=== PATIENT | female | born 1980 | race Caucasian/White ===

== ENCOUNTER 2016-07-03 13:38 | Emergency (ER) | payer OTHER ==
--- NOTE | 2016-07-03 15:14 | Emergency Department Record ---
History of Present Illness - General Chief Complaint: Abdominal Pain Stated Complaint: ABD PAIN Time Seen by Provider: 07/03/16 14:20 Mode of Arrival: Ambulatory - History of Present Illness Initial Comments: 2 days of abdominal pain and history of colitis . using endocort 3 pills per day but getting worse Complaint: Abdominal pain Onset/Timin -: Days(s) Location: LUQ, RUQ, LLQ, RLQ Radiation: None Migration to: No migration Severity: Severe Quality: Cramping Consistency: Constant Improves With: Nothing Worsens With: Nothing Associated Symptoms: Diarrhea - Related Data Patient : No Home Medications Medication Instructions Recorded Confirmed Last Taken Verapamil HCl [Verapamil ER] 180 mg PO DAILY 01/12/16 07/03/16 07/02/16 Budesonide [Entocort EC] 3 mg PO DAILY 07/03/16 07/03/16 07/03/16 Triamterene/Hydrochlorothiazid 1 tab PO DAILY 07/03/16 07/03/16 07/03/16 [Triamterene-Hctz 37.5-25 mg Cp] Previous Rx's Medication Instructions Recorded Hydrocodone/Acetaminophen [[place] 1 tab PO Q6H PRN #7 tab 01/12/16 5mg/325mg] Ondansetron [Zofran Odt] 4 mg PO Q8H #10 tab.rapdis 01/12/16 Prednisone [Prednisone 20Mg] 20 mg PO BIDPC #8 tab 01/12/16 Hydrocodone/Acetaminophen [[place] 1 tab PO Q6H PRN #20 tab 07/03/16 5mg/325mg] Ondansetron HCl [Zofran] 4 mg PO Q6HR #10 ml 07/03/16 Allergies Allergy/AdvReac Type Severity Reaction Status Date / Time No Known Drug Allergies Allergy Verified 07/03/16 14:20 Travel Screening - Travel/Exposure Within Last 30 Days Have you traveled within the last 30 days?: No Review of Systems Reviewed: No additional complaints except as noted below Constitutional: Reports: As per HPI. Denies: Chills, Fever, Malaise, Night sweats, Weakness, Weight change Eyes: Reports: As per HPI. Denies: Eye discharge, Eye pain, Photophobia, Vision change ENT: Reports: As per HPI. Denies: Congestion, Dental pain, Ear pain, Epistaxis , Hearing loss, Throat pain Respiratory: Reports: As per HPI. Denies: Cough, Dyspnea, Hemoptysis, Stridor, Wheezes Cardiovascular: Reports: As per HPI. Denies: Arrhythmia, Chest pain, Dyspnea on exertion, Edema, Murmurs, Orthopnea, Palpitations, Paroxysmal nocturnal dyspnea, Rheumatic Fever, Syncope Endocrine: Reports: As per HPI. Denies: Fatigue, Heat or cold intolerance, Polydipsia, Polyuria Gastrointestinal: Reports: As per HPI, Abdominal pain. Denies: Constipation, Diarrhea, Hematemesis, Hematochezia, Melena, Nausea, Vomiting Genitourinary: Reports: As per HPI. Denies: Abnormal menses, Discharge, Dyspareunia, Dysuria, Frequency, Hematuria, Incontinence, Retention, Urgency Musculoskeletal: Reports: As per HPI. Denies: Arthralgia, Back pain, Gout, Joint swelling, Myalgia, Neck pain Skin: Reports: As per HPI. Denies: Bruising, Change in color, Change in hair/ nails, Lesions, Pruritus, Rash Neurological: Reports: As per HPI. Denies: Abnormal gait, Confusion, Headache, Numbness, Paresthesias, Seizure, Tingling, Tremors, Vertigo, Weakness Psychiatric: Reports: As per HPI. Denies: Anxiety, Auditory hallucinations, Depression, Homicidal thoughts, Suicidal thoughts, Visual hallucinations Hematological/Lymphatic: Reports: As per HPI. Denies: Anemia, Blood Clots, Easy bleeding, Easy bruising, Swollen glands Past Medical History - SOCIAL HISTORY Smoking Status: Current every day smoker Alcohol Use: None Drug Use: None - RESPIRATORY Hx Respiratory Disorders: No - CARDIOVASCULAR Hx Cardio Disorders: Yes Hx Hypertension: Yes - NEURO Hx Neuro Disorders: No - GI Hx GI Disorders: Yes Comment:: colitis/duodinitis - Hx Genitourinary Disorders: No - ENDOCRINE Hx Endocrine Disorders: No - MUSCULOSKELETAL Hx Musculoskeletal Disorders: Yes - PSYCH Hx Psych Problems: No - HEMATOLOGY/ONCOLOGY Hx Hematology/Oncology Disorders: No Family Medical History Any Significant Family History?: No Physical Exam - General General Appearance: Alert, Oriented x3, Cooperative, No acute distress - Head Head exam: Normal inspection - Eye Eye exam: Normal appearance, PERRL Pupils: Normal accommodation - ENT ENT exam: Normal exam, Mucous membranes moist, Normal external ear exam, Normal orophraynx, TM's normal bilaterally Ear exam: Normal external inspection. negative: External canal tenderness Nasal Exam: Normal inspection. negative: Discharge, Sinus tenderness Mouth exam: Normal external inspection, Tongue normal Teeth exam: Normal inspection. negative: Dental caries Throat exam: Normal inspection. negative: Tonsillar erythema, Tonsillar exudate - Neck Neck exam: Normal inspection, Full ROM. negative: Tenderness - Respiratory Respiratory exam: Normal lung sounds bilaterally. negative: Respiratory distress - Cardiovascular Cardiovascular Exam: Regular rate, Normal rhythm, Normal heart sounds - GI/Abdominal GI/Abdominal exam: Soft, Normal bowel sounds, Tenderness (all four quads). negative: Guarding, Rebound, Rigid - Rectal Rectal exam: Deferred - exam: Deferred - Extremities Extremities exam: Normal inspection, Full ROM, Normal capillary refill. negative: Tenderness - Back Back exam: Reports: Normal inspection, Full ROM. Denies: Muscle spasm, Rash noted, Tenderness - Neurological Neurological exam: Alert, Normal gait, Oriented X3, Reflexes normal - Psychiatric Psychiatric exam: Normal affect, Normal mood - Skin Skin exam: Dry, Intact, Normal color, Warm Course Vital Signs 07/03/16 14:14 Temperature 98.4 F Pulse Rate 78 Respiratory 20 Rate Blood Pressure 141/111 Pulse Ox 99 feeling better Medical Decision Making - Data Complexity MDM Data: Labs Ordered and/or Reviewed, X-Ray Ordered and/or Reviewed (mild air fluid levels early illeus) - Lab Data Result diagrams: 07/03/16 14:30 07/03/16 14:30 Disposition Clinical Impression: Colitis Abdominal pain Qualifiers: Abdominal location: generalized Qualified Code(s): R10.84 - Generalized abdominal pain Disposition: Home, Self-Care Condition: (1) Good Instructions: Colitis (ED) Additional Instructions: clear liquids 24 hours follow up with in 2-5 days take entocort 4 pills per day Prescriptions: Ondansetron HCl [Zofran] 4 mg PO Q6HR #10 ml Hydrocodone/Acetaminophen [[place] 5mg/325mg] 1 tab PO Q6H PRN #20 tab PRN Reason: Pain - General Forms: Patient Portal Access Time of Disposition: 16:57
[2016-07-03] MEDS: ONDANSETRON HCL IV 4 MG/2 ML VIAL IV ONE (15:27)
[2016-07-03] MEDS: METHYLPREDNISOLONE PF 125MG/VIAL IVP ONE (15:27)
[2016-07-03] MEDS: HYDROMORPHONE HCL 1 MG/ML CPJ IVP ONE (15:27)
[2016-07-03] MEDS: 0.9 % SODIUM CHLORIDE 1,000 ML BAG IV ONE (15:30)
[2016-07-03 16:04] LABS: BASO % 0.3 % (0-6); EOS % 0.5 % (0-6); GRAN % 64.8 % (47-80); HEMATOCRIT 40.8 % (35.0-47.0); HEMOGLOBIN 14.4 gm/dl (11.6-16.0); LYMPH % 26.9 % (16-45); MEAN CELL VOLUME 90.9 fl (81-97); MEAN CORPUSCULAR HEMOGLOBIN 32.1 pg (27-33); MEAN CORPUSCULAR HGB CONC 35.3 g/dl (32-36); MEAN PLATELET VOLUME 9.8 fl (7.4-10.4); MONO % 7.5 % (0-9); PLATELET COUNT 334 K/uL (130-400); RED BLOOD COUNT 4.49 M/uL (3.80-5.40); RED CELL DISTRIBUTION WIDTH 12.4 % (11.5-14.5); WHITE BLOOD COUNT W/O DIFF 11.3 K/uL (4.2-12.2)
[2016-07-03 16:07] LABS: URINE APPEARANCE SL CLOUDY; URINE BILIRUBIN NEGATIVE (NEGATIVE); URINE BLOOD NEGATIVE (NEGATIVE); URINE COLOR YELLOW; URINE GLUCOSE (UA) NEGATIVE (NEGATIVE); URINE KETONE NEGATIVE (NEGATIVE); URINE LEUKOCYTE ESTERASE SMALL (NEGATIVE); URINE NITRITE NEGATIVE (NEGATIVE); URINE PROTEIN NEGATIVE (NEGATIVE); URINE UROBILINOGEN 0.2 E.U./dL (0.20 - 1.00)
[2016-07-03 16:14] LABS: URINE BACTERIA 3+; URINE EPITHELIAL CELLS 0 - 2 (FEW); URINE RBC NONE SEEN (NONE SEEN); URINE WBC 16 - 20 (0-2/hpf)
[2016-07-03 16:17] LABS: ALBUMIN 4.3 gm/dL (3.5-5.0); ALKALINE PHOSPHATASE 69 U/L (38-126); ALT/SGPT 30 U/L (9-52); ANION GAP 13.3 (7-16); AST/SGOT 19 U/L (14-36); BILIRUBIN,TOTAL 0.29 mg/dL (0.2-1.3); BLOOD UREA NITROGEN 9 mg/dL (7-17); CARBON DIOXIDE 23.7 mmol/L (22-30); CREATININE 0.7 mg/dL (0.52-1.04); EST GLOMERULAR FILTRATION RATE > 60 ml/min; GLUCOSE,RANDOM 72 mg/dL (70-110); LIPASE 168 U/L (23-300); TOTAL PROTEIN 7.2 gm/dL (6.3-8.2)
--- NOTE | 2016-07-03 17:14 | Emergency Department Record ---
History of Present Illness - General Chief Complaint: Abdominal Pain Stated Complaint: ABD PAIN Time Seen by Provider: 07/03/16 14:20 Mode of Arrival: Ambulatory - History of Present Illness MD Complaint: Abdominal pain Onset/Timin -: Days(s) Location: LUQ, RUQ, LLQ, RLQ Radiation: None Migration to: No migration Severity: Severe Quality: Cramping Consistency: Constant Improves With: Nothing Worsens With: Nothing Associated Symptoms: Diarrhea - Related Data Patient : No Home Medications Medication Instructions Recorded Confirmed Last Taken Verapamil HCl [Verapamil ER] 180 mg PO DAILY 01/12/16 07/03/16 07/02/16 Budesonide [Entocort EC] 3 mg PO DAILY 07/03/16 07/03/16 07/03/16 Triamterene/Hydrochlorothiazid 1 tab PO DAILY 07/03/16 07/03/16 07/03/16 [Triamterene-Hctz 37.5-25 mg Cp] Previous Rx's Medication Instructions Recorded Hydrocodone/Acetaminophen [[place] 1 tab PO Q6H PRN #7 tab 01/12/16 5mg/325mg] Ondansetron [Zofran Odt] 4 mg PO Q8H #10 tab.rapdis 01/12/16 Prednisone [Prednisone 20Mg] 20 mg PO BIDPC #8 tab 01/12/16 Ciprofloxacin HCl [Cipro] 500 mg PO Q12HR #14 tablet 07/03/16 Hydrocodone/Acetaminophen [[place] 1 tab PO Q6H PRN #20 tab 07/03/16 5mg/325mg] Ondansetron HCl [Zofran] 4 mg PO Q6HR #10 ml 07/03/16 Allergies Allergy/AdvReac Type Severity Reaction Status Date / Time No Known Drug Allergies Allergy Verified 07/03/16 14:20 Travel Screening - Travel/Exposure Within Last 30 Days Have you traveled within the last 30 days?: No Review of Systems Constitutional: Reports: As per HPI. Denies: Chills, Fever, Malaise, Night sweats, Weakness, Weight change Eyes: Reports: As per HPI. Denies: Eye discharge, Eye pain, Photophobia, Vision change ENT: Reports: As per HPI. Denies: Congestion, Dental pain, Ear pain, Epistaxis , Hearing loss, Throat pain Respiratory: Reports: As per HPI. Denies: Cough, Dyspnea, Hemoptysis, Stridor, Wheezes Cardiovascular: Reports: As per HPI. Denies: Arrhythmia, Chest pain, Dyspnea on exertion, Edema, Murmurs, Orthopnea, Palpitations, Paroxysmal nocturnal dyspnea, Rheumatic Fever, Syncope Endocrine: Reports: As per HPI. Denies: Fatigue, Heat or cold intolerance, Polydipsia, Polyuria Gastrointestinal: Reports: As per HPI, Abdominal pain. Denies: Constipation, Diarrhea, Hematemesis, Hematochezia, Melena, Nausea, Vomiting Genitourinary: Reports: As per HPI. Denies: Abnormal menses, Discharge, Dyspareunia, Dysuria, Frequency, Hematuria, Incontinence, Retention, Urgency Musculoskeletal: Reports: As per HPI. Denies: Arthralgia, Back pain, Gout, Joint swelling, Myalgia, Neck pain Skin: Reports: As per HPI. Denies: Bruising, Change in color, Change in hair/ nails, Lesions, Pruritus, Rash Neurological: Reports: As per HPI. Denies: Abnormal gait, Confusion, Headache, Numbness, Paresthesias, Seizure, Tingling, Tremors, Vertigo, Weakness Psychiatric: Reports: As per HPI. Denies: Anxiety, Auditory hallucinations, Depression, Homicidal thoughts, Suicidal thoughts, Visual hallucinations Hematological/Lymphatic: Reports: As per HPI. Denies: Anemia, Blood Clots, Easy bleeding, Easy bruising, Swollen glands Past Medical History - SOCIAL HISTORY Smoking Status: Current every day smoker Alcohol Use: None Drug Use: None - RESPIRATORY Hx Respiratory Disorders: No - CARDIOVASCULAR Hx Cardio Disorders: Yes Hx Hypertension: Yes - NEURO Hx Neuro Disorders: No - GI Hx GI Disorders: Yes Comment:: colitis/duodinitis - Hx Genitourinary Disorders: No - ENDOCRINE Hx Endocrine Disorders: No - MUSCULOSKELETAL Hx Musculoskeletal Disorders: Yes - PSYCH Hx Psych Problems: No - HEMATOLOGY/ONCOLOGY Hx Hematology/Oncology Disorders: No Family Medical History Any Significant Family History?: No Course Vital Signs 07/03/16 07/03/16 07/03/16 14:14 15:53 17:06 Temperature 98.4 F Pulse Rate 78 75 Pulse Rate [ 71 Pulse Ox Probe] Respiratory 20 16 16 Rate Blood Pressure 141/111 140/105 Blood Pressure 138/94 [Right Arm] Pulse Ox 99 96 97 Medical Decision Making - Lab Data Result diagrams: 07/03/16 14:30 07/03/16 14:30 Lab Results 07/03/16 07/03/16 07/03/16 Range/Units 14:30 14:30 14:30 WBC 11.3 (4.2-12.2) K/uL RBC 4.49 (3.80-5.40) M/uL Hgb 14.4 (11.6-16.0) gm/dl Hct 40.8 (35.0-47.0) % MCV 90.9 (81-97) fl MCH 32.1 (27-33) pg MCHC 35.3 (32-36) g/dl RDW 12.4 (11.5-14.5) % Plt Count 334 (130-400) K/uL MPV 9.8 (7.4-10.4) fl Gran % 64.8 (47-80) % Lymphocytes % 26.9 (16-45) % Monocytes % 7.5 (0-9) % Eosinophils % 0.5 (0-6) % Basophils % 0.3 (0-6) % Sodium 144 (136-145) mmol/L Potassium 3.5 (3.5-5.1) mmol/L Chloride 107 (98-107) mmol/L Carbon Dioxide 23.7 (22-30) mmol/L Anion Gap 13.3 (7-16) BUN 9 (7-17) mg/dL Creatinine 0.7 (0.52-1.04) mg/dL Estimated GFR > 60 ml/min Random Glucose 72 (70-110) mg/dL Calcium 9.2 (8.5-10.1) mg/dL Total Bilirubin 0.29 (0.2-1.3) mg/dL Direct Bilirubin 0.0 (0-0.3) mg/dL AST 19 (14-36) U/L ALT 30 (9-52) U/L Alkaline Phosphatase 69 (38-126) U/L Total Protein 7.2 (6.3-8.2) gm/dL Albumin 4.3 (3.5-5.0) gm/dL Lipase 168 (23-300) U/L Urine Color Yellow Urine Appearance Sl cloudy Urine pH 8.5 (5.0-8.0) Ur Specific [place] 1.020 (1.002-1.030) Urine Protein Negative (NEGATIVE) Urine Glucose (UA) Negative (NEGATIVE) Urine Ketones Negative (NEGATIVE) Urine Blood Negative (NEGATIVE) Urine Nitrite Negative (NEGATIVE) Urine Bilirubin Negative (NEGATIVE) Urine Urobilinogen 0.2 (0.20 - 1.00) E.U./dL Ur Leukocyte Esterase Small H (NEGATIVE) Urine RBC None seen (NONE SEEN) Urine WBC 16 - 20 (0-2/hpf) Ur Epithelial Cells 0 - 2 (FEW) Urine Bacteria 3+ Disposition Clinical Impression: Colitis Abdominal pain Qualifiers: Abdominal location: generalized Qualified Code(s): R10.84 - Generalized abdominal pain Urinary Tract Infection Qualifiers: Urinary tract infection type: acute cystitis Hematuria presence: without hematuria Qualified Code(s): N30.00 - Acute cystitis without hematuria Disposition: Home, Self-Care Condition: (1) Good Instructions: Colitis (ED) Additional Instructions: clear liquids 24 hours follow up with in 2-5 days take entocort 4 pills per day Prescriptions: Ondansetron HCl [Zofran] 4 mg PO Q6HR #10 ml Ciprofloxacin HCl [Cipro] 500 mg PO Q12HR #14 tablet Hydrocodone/Acetaminophen [[place] 5mg/325mg] 1 tab PO Q6H PRN #20 tab PRN Reason: Pain - General Forms: Patient Portal Access Time of Disposition: 17:13
--- NOTE | 2016-07-09 11:24 | RADIOLOGY REPORT ---
EXAM: ACUTE ABDOMEN SERIES WHICH INCLUDES A PA CHEST HISTORY: ABDOMINAL PAIN FOR THREE DAYS. HISTORY OF COLITIS. TECHNIQUE: PA view of the chest and supine and upright views of the abdomen were obtained. Comparison: None. FINDINGS: CHEST: The heart size is normal. There is some minor suprahilar streaky atelectasis or infiltrate on the right. This may be some chronic scarring. Deep inspiration taken. Blunting of the left lateral costophrenic angle by fluid or thickened pleura. Thoracic curve to the right. ABDOMEN: Nonspecific bowel gas pattern seen scattered throughout the colon, small bowel and also within the stomach. Some mild air fluid levels in the upright view. Findings may represent an ileus. Recommend follow-up films if symptoms persist. No free air evident. Minor lumbar curve to the left. IMPRESSION: 1. DEEP INSPIRATION. 2. BLUNTING OF THE LEFT LATERAL COSTOPHRENIC ANGLE BY FLUID OR THICKENED PLEURA. 3. MINOR RIGHT SUPRAHILAR STREAKY ATELECTASIS OR INFILTRATE. 4. SOME NONSPECIFIC AIR FLUID LEVELS MAY REPRESENT AN ILEUS. RECOMMEND FOLLOW- UP FILMS IF SYMPTOMS PERSIST. 5. NO FREE AIR EVIDENT. 6. MILD LUMBAR CURVE TO THE LEFT. JOB NUMBER: [id number] [facility]
== END 2016-07-03 17:10 | disposition home or self-care (01) ==
LOC: ER 13:38
DX: N30.00 Acute cystitis without hematuria (principal); K52.9 Noninfective gastroenteritis and colitis, unspecified; R10.84 Generalized abdominal pain
CPT/HCPCS: 99284 ×2; 96374; 96375; 96361; 83690; 85025; 80076; 80048; 81001; 74022; J2405; J1170; J2930; J7030

== ENCOUNTER 2017-01-07 08:25 | Emergency (ER) | payer SELFPAY ==
[2017-01-07] MEDS ORDERED: 0.9 % SODIUM CHLORIDE 1,000 ML BAG IV ONE ×2 (08:42→09:52)
--- NOTE | 2017-01-07 08:42 | Emergency Department Record ---
History of Present Illness - General Chief Complaint: Abdominal Pain Stated Complaint: ABD PAIN Time Seen by Provider: 01/07/17 08:34 Source: Patient Mode of Arrival: Ambulatory - History of Present Illness Initial Comments: 36yo female presents with abdominal pain. She has a history of ulcerative colitis. No history of abdominal surgery or the large or small bowel. Starting last she developed urinary frequency and cloudiness. Starting Friday she developed pain across the lower abdomen. She has occasional nausea but no vomiting. The pain is sharp and cramps. She chronically has loose stools occasionally with blood. No fevers during this time. GI is Dr Mendoza at [facility] [place]. PCP is Dr Ingram through [facility]. MD Complaint: Abdominal pain Onset/Timin -: Days(s) Location: LLQ, RLQ Radiation: None Migration to: No migration Severity: Moderate Quality: Sharp Consistency: Intermittent Improves With: Nothing Worsens With: Nothing Associated Symptoms: Denies other symptoms, Diarrhea - Related Data Patient : No Previous Rx's Medication Instructions Recorded Hydrocodone/Acetaminophen [[place] 1 tab PO Q6H PRN #20 tab 07/03/16 5mg/325mg] Ondansetron HCl [Zofran] 4 mg PO Q6HR #10 ml 07/03/16 Ciprofloxacin HCl [Cipro] 500 mg PO Q12HR #14 tablet 01/07/17 Hydrocodone/Acetaminophen [[place] 1 tab PO Q6H PRN #15 tab 01/07/17 10mg/325mg] Methylprednisolone [Medrol Dose 4 mg PO DAILY #1 tab.ds.pk 01/07/17 Pack] Phenazopyridine HCl [Pyridium] 100 mg PO TID #6 tablet 01/07/17 Allergies Allergy/AdvReac Type Severity Reaction Status Date / Time No Known Drug Allergies Allergy Verified 01/07/17 08:30 Travel Screening - Travel/Exposure Within Last 30 Days Have you traveled within the last 30 days?: No Review of Systems Constitutional: Denies: Chills, Fever, Malaise, Weakness Eyes: Denies: Eye discharge, Eye pain, Photophobia ENT: Denies: Congestion, Throat pain Respiratory: Denies: Cough, Dyspnea, Hemoptysis, Stridor, Wheezes Cardiovascular: Denies: Chest pain, Palpitations, Syncope Endocrine: Denies: Fatigue Gastrointestinal: Reports: As per HPI, Abdominal pain, Diarrhea, Hematochezia, Nausea. Denies: Constipation, Hematemesis Genitourinary: Reports: As per HPI, Dysuria, Frequency, Urgency. Denies: Abnormal menses, Hematuria, Incontinence, Retention Musculoskeletal: Denies: Arthralgia, Back pain, Joint swelling Skin: Denies: Bruising, Change in color, Rash Neurological: Denies: Headache, Numbness, Vertigo, Weakness Psychiatric: Denies: Anxiety Hematological/Lymphatic: Denies: Blood Clots, Easy bleeding, Easy bruising, Swollen glands Past Medical History - SOCIAL HISTORY Smoking Status: Current every day smoker Alcohol Use: None Drug Use: None - RESPIRATORY Hx Respiratory Disorders: No - CARDIOVASCULAR Hx Cardio Disorders: Yes Hx Hypertension: Yes - NEURO Hx Neuro Disorders: No - GI Hx GI Disorders: Yes Comment:: colitis/duodinitis - Hx Genitourinary Disorders: No - ENDOCRINE Hx Endocrine Disorders: No - MUSCULOSKELETAL Hx Musculoskeletal Disorders: Yes - PSYCH Hx Psych Problems: No - HEMATOLOGY/ONCOLOGY Hx Hematology/Oncology Disorders: No Family Medical History Any Significant Family History?: No Physical Exam - General General Appearance: Alert, Oriented x3, Cooperative, No acute distress Limitations: No limitations - Head Head exam: Normal inspection - Eye Eye exam: Normal appearance. negative: Conjunctival injection, Periorbital swelling - ENT ENT exam: Normal exam, Mucous membranes moist Ear exam: Normal external inspection Nasal Exam: Normal inspection Mouth exam: Normal external inspection - Neck Neck exam: Normal inspection, Full ROM. negative: Tenderness - Respiratory Respiratory exam: Normal lung sounds bilaterally. negative: Respiratory distress - Cardiovascular Cardiovascular Exam: Regular rate, Normal rhythm, Normal heart sounds Peripheral Pulses: 2+: Radial (R), Radial (L) - GI/Abdominal GI/Abdominal exam: Soft, Tenderness (mild tenderness across the lower abdomen). negative: Distended - Rectal Rectal exam: Deferred - exam: Deferred - Extremities Extremities exam: Normal inspection, Full ROM, Normal capillary refill. negative: Tenderness - Back Back exam: Reports: Normal inspection, Full ROM. Denies: Muscle spasm, Rash noted, Tenderness - Neurological Neurological exam: Alert, Normal gait, Oriented X3 - Psychiatric Psychiatric exam: Normal affect, Normal mood. negative: Agitated, Anxious - Skin Skin exam: Dry, Intact, Normal color, Warm Course Vital Signs 01/07/17 08:32 Temperature 98.0 F Pulse Rate 83 Respiratory 20 Rate Blood Pressure 148/106 Pulse Ox 97 - Reevaluation(s) Reevaluation #1: The vitals were reviewed. No fever or tachycardia 01/07/17 08:59 The UA does demonstrate some signs of infection with LE Large and >50 WBC's with bacteria. The CBC was reviewed. No acute changes. 01/07/17 09:07 No acute changes on the ACIDIZER or lipase. 01/07/17 09:22 The patient reports to me she is doing much better Her pain is controlled. She continues to get IVF hydration. 01/07/17 09:55 Reevaluation #2: The patient continues to do well She is ready for DC We discussed at length returning to the ED if worse, fever, vomiting or any new concerns 01/07/17 11:36 Medical Decision Making - Lab Data Result diagrams: 01/07/17 08:40 01/07/17 08:40 Disposition Disposition: Discharge Clinical Impression: Colitis UTI (urinary tract infection) Qualifiers: Urinary tract infection type: site unspecified Hematuria presence: without hematuria Qualified Code(s): N39.0 - Urinary tract infection, site not specified Abdominal pain Qualifiers: Abdominal location: unspecified location Qualified Code(s): R10.9 - Unspecified abdominal pain Disposition: Home, Self-Care Condition: (1) Good Instructions: Urinary Tract Infection in Women (ED), Ulcerative Colitis (ED) Additional Instructions: Clear liquid diet the next 1-2 days Return if worse pain, fever, vomiting or any new concerns Call your family doctor and GI doctor for close follow up this week Return to the ER in the next 12-24 hours if not felling much better Prescriptions: Ciprofloxacin HCl [Cipro] 500 mg PO Q12HR #14 tablet Hydrocodone/Acetaminophen [[place] 10mg/325mg] 1 tab PO Q6H PRN #15 tab PRN Reason: Pain - General Methylprednisolone [Medrol Dose Pack] 4 mg PO DAILY #1 tab.ds.pk Phenazopyridine HCl [Pyridium] 100 mg PO TID #6 tablet Forms: Patient Portal Access Time of Disposition: 11:43 Quality - Quality Measures Quality Measures: N/A - Blood Pressure Screening Does Patient Have Any of the Following: No Blood Pressure Classification: Hypertensive Reading Systolic Measurement: 148 Diastolic Measurement: 106 Screening for High Blood Pressure: < Pre-Hypertensive BP, F/U Documented > [ [id number]] Pre-Hypertensive Follow-up Interventions: Referral to alternative/primary care provider.
[2017-01-07] MEDS ORDERED: METHYLPREDNISOLONE PF 125MG/VIAL IVP ONE (08:49)
[2017-01-07] MEDS ORDERED: ONDANSETRON HCL IV 4 MG/2 ML VIAL IVP ONE (08:49)
[2017-01-07] MEDS ORDERED: MORPHINE SULFATE 5 MG/ML PFS IVP ONE ×2 (08:49→09:59)
[2017-01-07 08:53] LABS: BASO % 0.5 % (0-6); EOS % 2.8 % (0-6); GRAN % 60.9 % (47-80); HEMATOCRIT 42.2 % (35.0-47.0); HEMOGLOBIN 14.7 gm/dl (11.6-16.0); LYMPH % 26.8 % (16-45); MEAN CELL VOLUME 91.1 fl (81-97); MEAN CORPUSCULAR HEMOGLOBIN 31.7 pg (27-33); MEAN CORPUSCULAR HGB CONC 34.8 g/dl (32-36); MEAN PLATELET VOLUME 8.8 fl (7.4-10.4); PLATELET COUNT 284 K/uL (130-400); RED BLOOD COUNT 4.63 M/uL (3.80-5.40); RED CELL DISTRIBUTION WIDTH 12.6 % (11.5-14.5)
[2017-01-07 08:54] LABS: URINE APPEARANCE CLOUDY; URINE BILIRUBIN NEGATIVE (NEGATIVE); URINE BLOOD SMALL (NEGATIVE); URINE COLOR YELLOW; URINE GLUCOSE (UA) NEGATIVE (NEGATIVE); URINE KETONE NEGATIVE (NEGATIVE); URINE LEUKOCYTE ESTERASE LARGE (NEGATIVE); URINE NITRITE NEGATIVE (NEGATIVE); URINE PROTEIN NEGATIVE (NEGATIVE); URINE UROBILINOGEN 0.2 E.U./dL (0.20 - 1.00)
[2017-01-07 09:01] LABS: URINE BACTERIA FEW; URINE EPITHELIAL CELLS 0 - 2 (FEW); URINE WBC >50 (0-2/hpf)
[2017-01-07 09:06] LABS: HCG,QUALITATIVE URINE NEGATIVE (NEGATIVE)
[2017-01-07] MEDS ORDERED: CEFTRIAXONE SODIUM 1 GM in 0.9 % SODIUM CHLORIDE 100ML 100 ML IVPB ONE (09:08)
[2017-01-07 09:16] LABS: ALB/GLOB RATIO 1.6 (1.1-1.8); ALBUMIN 4.2 g/dL (4.0-5.0); ALKALINE PHOSPHATASE 54 U/L (35-104); ALT/SGPT 14 U/L (<33); AST/SGOT 16 U/L (10.0-35.0); BLOOD UREA NITROGEN 24.3 mg/dL (12.6-42.6); CREATININE 0.7 mg/dL (0.5-0.9); EST GLOMERULAR FILTRATION RATE > 60 mL/min; GLUCOSE,RANDOM 77 mg/dL (74-109); LIPASE 25 U/L (13-60); TOTAL PROTEIN 6.9 g/dL (6.6-8.7)
== END 2017-01-07 11:55 | disposition home or self-care (01) ==
LOC: ER 08:25
DX: K52.9 Noninfective gastroenteritis and colitis, unspecified (principal); N39.0 Urinary tract infection, site not specified
CPT/HCPCS: 99284 ×2; 96376; 96374; 96375; 96361; 83690; 85025; 80053; 81001; 81025; J2405; J2270; J2930; J7030

== ENCOUNTER 2017-12-11 00:04 | Emergency (ER) | payer MEDICAID ==
--- NOTE | 2017-12-11 00:31 | Emergency Department Record ---
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 She was able to continue working and felt she may have pulled a muscle. The patient did not fall and has been able to walk since the injury. She also has had mild dysuria recently today. MD Complaint: Extremity pain Onset/Timin -: Hour(s) Location: Right, Lower Leg - Related Data Home Medications Medication Instructions Recorded Confirmed Last Taken Hydrochlorothiazide [Hctz] 12.5 mg PO DAILY 12/11/17 12/11/17 Unknown Previous Rx's Medication Instructions Recorded Hydrocodone/Acetaminophen [[place] 1 tab PO Q6H PRN #20 tab 07/03/16 5mg/325mg] Ondansetron HCl [Zofran] 4 mg PO Q6HR #10 ml 07/03/16 Sulfamethoxazole/Trimethoprim 1 tab PO BID #6 tab 12/11/17 [Bactrim Ds] Allergies Allergy/AdvReac Type Severity Reaction Status Date / Time No Known Drug Allergies Allergy Verified 01/07/17 08:30 Review of Systems Constitutional: Denies: Chills, Fever Eyes: Denies: Eye discharge ENT: Denies: Congestion Respiratory: Denies: Cough, Dyspnea Past Medical History - SOCIAL HISTORY Smoking Status: Current every day smoker Drug Use: None - RESPIRATORY Hx Respiratory Disorders: No - CARDIOVASCULAR Hx Cardio Disorders: Yes Hx Hypertension: Yes - NEURO Hx Neuro Disorders: No - GI Hx GI Disorders: Yes Comment:: colitis/duodinitis - Hx Genitourinary Disorders: No - ENDOCRINE Hx Endocrine Disorders: No - MUSCULOSKELETAL Hx Musculoskeletal Disorders: Yes - PSYCH Hx Psych Problems: No - HEMATOLOGY/ONCOLOGY Hx Hematology/Oncology Disorders: No Physical Exam - General General Appearance: Alert, Oriented x3, Cooperative, No acute distress - Head Head exam: Atraumatic, Normocephalic, Normal inspection - Eye Eye exam: Normal appearance, PERRL - Respiratory Respiratory exam: Normal lung sounds bilaterally. negative: Respiratory distress - Cardiovascular Cardiovascular Exam: Regular rate, Normal rhythm, Normal heart sounds - GI/Abdominal GI/Abdominal exam: Soft, Normal bowel sounds. negative: Tenderness - Extremities Extremities exam: Normal inspection (There is no calf area swelling or bruising. ), Calf tenderness (Mild to the R calf. There is no muscle defect appreciated.) , Full ROM, Normal capillary refill, Tenderness, Other (The R lower leg achilles tendon is clearly intact with no disruption. The R leg is NVI.). negative: Joint swelling - Neurological Neurological exam: Alert, Normal gait. negative: Abnormal gait, Motor sensory deficit Course Vital Signs 12/11/17 00:11 Temperature 97.7 F Pulse Rate [ 73 Pulse Ox Probe] Respiratory 18 Rate Blood Pressure 143/104 [Left Arm] Pulse Ox 98 - Reevaluation(s) Reevaluation #1: I did explain the need for the oral Abx's for the UTI and NSAIDS for the leg. She is to be off work 2 days and see her PCP next week if not better. 12/11/17 01:00 Medical Decision Making - Data Complexity MDM Data: Labs Ordered and/or Reviewed Disposition Disposition: Discharge Clinical Impression: Muscle strain, lower leg Qualifiers: Encounter type: initial encounter Laterality: right Qualified Code(s): S86.911A - Strain of unspecified muscle(s) and tendon(s) at lower leg level, right leg, initial encounter UTI (urinary tract infection) Qualifiers: Urinary tract infection type: acute cystitis Hematuria presence: without hematuria Qualified Code(s): N30.00 - Acute cystitis without hematuria Disposition: Home, Self-Care Condition: (2) Stable Instructions: Muscle Strain (ED), Urinary Tract Infection in Women (ED) Additional Instructions: Please drink plenty of fluids and take the Bactrim. Please use Motrin or Advil for the leg and also use ice for 3 days. Please see your family doctor if not better in 3 days and return to the ER if worse. Prescriptions: Sulfamethoxazole/Trimethoprim [Bactrim Ds] 1 tab PO BID #6 tab Forms: Patient Portal Access Time of Disposition: 01:02 Quality - Quality Measures Quality Measures: N/A - Blood Pressure Screening View Details: Yes Does Patient Have Any of the Following: Active Dx of HTN Blood Pressure Classification: Hypertensive Reading Systolic Measurement: 126 Diastolic Measurement: 93 Screening for High Blood Pressure: Patient Exclusion, Hx of HTN [G9744]
[2017-12-11 00:43] LABS: URINE APPEARANCE CLEAR; URINE BILIRUBIN NEGATIVE (NEGATIVE); URINE BLOOD NEGATIVE (NEGATIVE); URINE COLOR YELLOW; URINE GLUCOSE (UA) NEGATIVE (NEGATIVE); URINE KETONE TRACE (NEGATIVE); URINE LEUKOCYTE ESTERASE SMALL (NEGATIVE); URINE NITRITE NEGATIVE (NEGATIVE); URINE PROTEIN NEGATIVE (NEGATIVE); URINE UROBILINOGEN 0.2 E.U./dL (0.20 - 1.00)
[2017-12-11 00:46] LABS: HCG,QUALITATIVE URINE NEGATIVE (NEGATIVE)
[2017-12-11 00:54] LABS: URINE BACTERIA 1+; URINE RBC 0 - 2 (NONE SEEN)
[2017-12-11] MEDS ORDERED: TMP/SMZ 160MG/800MG TAB PO ONE (00:59)
== END 2017-12-11 01:12 | disposition home or self-care (01) ==
LOC: ER 00:04
DX: S86.911A Strain of unspecified muscle(s) and tendon(s) at lower leg level, right leg, initial encounter (principal); N30.00 Acute cystitis without hematuria; W50.2XXA Accidental twist by another person, initial encounter; Y92.511 Restaurant or cafe as the place of occurrence of the external cause; Y99.0 Civilian activity done for income or pay; F17.210 Nicotine dependence, cigarettes, uncomplicated; I10 Essential (primary) hypertension
CPT/HCPCS: 99283 ×2; 81001; 81025; J3490

== ENCOUNTER 2018-07-31 15:07 | Emergency (ER) | payer OTHER ==
[2018-07-31] MEDS ORDERED: LORAZEPAM 2 MG/ML VIAL IV ONE (15:52)
--- NOTE | 2018-07-31 15:54 | Emergency Department Record ---
History of Present Illness - General Chief Complaint: General Stated Complaint: PTSD ONSET Time Seen by Provider: 07/31/18 15:47 Source: Patient, RN notes reviewed Mode of Arrival: Ambulatory - History of Present Illness Initial comments: anxiety episode and history of PTSD and her primary is Caitlin guzman . PMH Ulcerative collitis and scoliosis and hypertension and PTSD. - Related Data Previous Rx's Medication Instructions Recorded Ondansetron HCl [Zofran] 4 mg PO Q6HR #10 ml 07/03/16 Hydroxyzine Pamoate [Vistaril] 25 mg PO Q6H #14 capsule 07/31/18 Allergies Allergy/AdvReac Type Severity Reaction Status Date / Time No Known Drug Allergies Allergy Verified 01/07/17 08:30 Travel Screening - Travel/Exposure Within Last 30 Days Have you traveled within the last 30 days?: Yes Location Detail:: [place] - Travel/Exposure Within Last Year Have you traveled outside the [place] in the last year?: No - Travel Symptoms Symptom Screening: None Review of Systems Reviewed: No additional complaints except as noted below Constitutional: Reports: As per HPI. Denies: Chills, Fever, Malaise, Night sweats, Weakness, Weight change Eyes: Reports: As per HPI. Denies: Eye discharge, Eye pain, Photophobia, Vision change ENT: Reports: As per HPI. Denies: Congestion, Dental pain, Ear pain, Epistaxis , Hearing loss, Throat pain Respiratory: Reports: As per HPI. Denies: Cough, Dyspnea, Hemoptysis, Stridor, Wheezes Cardiovascular: Reports: As per HPI. Denies: Arrhythmia, Chest pain, Dyspnea on exertion, Edema, Murmurs, Orthopnea, Palpitations, Paroxysmal nocturnal dyspnea, Rheumatic Fever, Syncope Endocrine: Reports: As per HPI. Denies: Fatigue, Heat or cold intolerance, Polydipsia, Polyuria Gastrointestinal: Reports: As per HPI. Denies: Abdominal pain, Constipation, Diarrhea, Hematemesis, Hematochezia, Melena, Nausea, Vomiting Genitourinary: Reports: As per HPI. Denies: Abnormal menses, Discharge, Dyspareunia, Dysuria, Frequency, Hematuria, Incontinence, Retention, Urgency Musculoskeletal: Reports: As per HPI. Denies: Arthralgia, Back pain, Gout, Joint swelling, Myalgia, Neck pain Skin: Reports: As per HPI. Denies: Bruising, Change in color, Change in hair/ nails, Lesions, Pruritus, Rash Neurological: Reports: As per HPI. Denies: Abnormal gait, Confusion, Headache, Numbness, Paresthesias, Seizure, Tingling, Tremors, Vertigo, Weakness Psychiatric: Reports: As per HPI, Anxiety. Denies: Auditory hallucinations, Depression, Homicidal thoughts, Suicidal thoughts, Visual hallucinations Hematological/Lymphatic: Reports: As per HPI. Denies: Anemia, Blood Clots, Easy bleeding, Easy bruising, Swollen glands Past Medical History - SOCIAL HISTORY Smoking Status: Current every day smoker - RESPIRATORY Hx Respiratory Disorders: Yes Comment:: environmental allergies - CARDIOVASCULAR Hx Cardio Disorders: Yes Hx Hypertension: Yes - NEURO Hx Neuro Disorders: No - GI Hx GI Disorders: Yes Comment:: colitis/duodinitis - Hx Genitourinary Disorders: No - ENDOCRINE Hx Endocrine Disorders: No - MUSCULOSKELETAL Hx Musculoskeletal Disorders: Yes - PSYCH Hx Psych Problems: Yes Comment:: PTSD - HEMATOLOGY/ONCOLOGY Hx Hematology/Oncology Disorders: No Family Medical History Any Significant Family History?: Yes Hx Heart Disease: Father *Heart Comment: [place] x2 Hx HTN: Father Physical Exam - General General Appearance: Alert, Oriented x3, Cooperative, No acute distress - Head Head exam: Normal inspection - Eye Eye exam: Normal appearance, PERRL Pupils: Normal accommodation - ENT ENT exam: Normal exam, Mucous membranes moist, Normal external ear exam, Normal orophraynx, TM's normal bilaterally Ear exam: Normal external inspection. negative: External canal tenderness Nasal Exam: Normal inspection. negative: Discharge, Sinus tenderness Mouth exam: Normal external inspection, Tongue normal Teeth exam: Normal inspection. negative: Dental caries Throat exam: Normal inspection. negative: Tonsillar erythema, Tonsillar exudate - Neck Neck exam: Normal inspection, Full ROM. negative: Tenderness - Respiratory Respiratory exam: Normal lung sounds bilaterally. negative: Respiratory distress - Cardiovascular Cardiovascular Exam: Regular rate, Normal rhythm, Normal heart sounds - GI/Abdominal GI/Abdominal exam: Soft, Normal bowel sounds. negative: Tenderness - Rectal Rectal exam: Deferred - exam: Deferred - Extremities Extremities exam: Normal inspection, Full ROM, Normal capillary refill. negative: Tenderness - Back Back exam: Reports: Normal inspection, Full ROM. Denies: Muscle spasm, Rash noted, Tenderness - Neurological Neurological exam: Alert, Normal gait, Oriented X3, Reflexes normal - Psychiatric Psychiatric exam: Normal affect, Normal mood - Skin Skin exam: Dry, Intact, Normal color, Warm Course Vital Signs 07/31/18 15:17 Temperature 97.5 F L Pulse Rate 95 H Respiratory 14 Rate Blood Pressure 147/95 Pulse Ox 99 Medical Decision Making - Lab Data Result diagrams: 07/31/18 16:04 07/31/18 16:04 Disposition Clinical Impression: Panic attack Disposition: Home, Self-Care Condition: (1) Good Instructions: Anxiety (ED) Additional Instructions: follow up with family Dr in one week Prescriptions: Hydroxyzine Pamoate [Vistaril] 25 mg PO Q6H #14 capsule Forms: Patient Portal Access Time of Disposition: 16:21 Quality - Quality Measures Quality Measures: N/A - Blood Pressure Screening Does Patient Have Any of the Following: No Blood Pressure Classification: Hypertensive Reading Systolic Measurement: 147 Diastolic Measurement: 95 Screening for High Blood Pressure: < First Hypertensive BP, F/U Documented > [ [id number]] First Hypertensive Follow-up Interventions: Referral to alternative/primary care provider.
[2018-07-31 16:19] LABS: BASO % 0.4 % (0-6); GRAN % 60.7 % (47-80); HEMATOCRIT 43.4 % (35.0-47.0); HEMOGLOBIN 15.3 gm/dl (11.6-16.0); LYMPH % 28.7 % (16-45); MEAN CELL VOLUME 91.9 fl (81-97); MEAN CORPUSCULAR HEMOGLOBIN 32.4 pg (27-33); MEAN CORPUSCULAR HGB CONC 35.3 g/dl (32-36); MEAN PLATELET VOLUME 8.9 fl (7.4-10.4); MONO % 9.2 % (0-9); PLATELET COUNT 331 K/uL (130-400); RED BLOOD COUNT 4.72 M/uL (3.80-5.40); RED CELL DISTRIBUTION WIDTH 12.8 % (11.5-14.5)
[2018-07-31 16:25] LABS: BLOOD UREA NITROGEN 8 mg/dL (6-20); CREATININE 0.6 mg/dL (0.5-0.9); EST GLOMERULAR FILTRATION RATE > 60 mL/min
[2018-07-31 16:28] LABS: GLUCOSE,RANDOM 101 mg/dL (74-109)
== END 2018-07-31 16:42 | disposition home or self-care (01) ==
LOC: ER 15:07
DX: F41.0 Panic disorder [episodic paroxysmal anxiety] (principal); F43.10 Post-traumatic stress disorder, unspecified; I10 Essential (primary) hypertension; F17.210 Nicotine dependence, cigarettes, uncomplicated
CPT/HCPCS: 99284 ×2; 96374; 85025; 80048; J2060

== ENCOUNTER 2019-04-26 15:47 | Emergency (ER) | payer BC, OTHER ==
[2019-04-26] MEDS ORDERED: ACETAMINOPHEN 1,000 MG/100 ML BTL IVPB ONE (16:16)
[2019-04-26] MEDS ORDERED: 0.9 % SODIUM CHLORIDE 1,000 ML BAG IV ONE (16:16)
--- NOTE | 2019-04-26 16:34 | Emergency Department Record ---
History of Present Illness - General Chief complaint: Abscess Stated complaint: BLEEDING FROM [place]BUTTON Time Seen by Provider: 04/26/19 15:55 Source: Patient Mode of Arrival: Ambulatory Limitations: No limitations - History of Present Illness Initial comments: The patient is here due to developing a rash and drainage from her belly button with mild pain 3 days ago. The bleeding has now stopped. There has been no fever or chills but the patient also has had an Ulcerative Colitis flare for the last week which now is much better. She has had increased diarrhea with mild bleeding over the last week but that is much improved now. There has been no fever, chills, dysuria, vomiting, or back pain. The patient has a long hx of UC and does usually take Entocort for flare ups but has not started it yet. MD complaint: Rash Onset/Timin -: Days(s) Severity: Moderate Severity scale (1-10): 7 Quality: Aching - Related Data Home Medications Medication Instructions Recorded Confirmed Last Taken Diphenoxylate HCl/Atropine 1 each PO BID 04/26/19 04/26/19 1 Day Ago [Lomotil 2.5-0.025 mg Tablet] ~04/25/19 Previous Rx's Medication Instructions Recorded Ondansetron HCl [Zofran] 4 mg PO Q6HR #10 ml 07/03/16 Cephalexin [Keflex] 500 mg PO QID #28 cap 04/26/19 Mupirocin [Bactroban] 22 gm TOP DAILY #1 tube 04/26/19 Allergies Allergy/AdvReac Type Severity Reaction Status Date / Time No Known Drug Allergies Allergy Verified 04/26/19 15:57 Travel Screening - Travel/Exposure Within Last 30 Days Have you traveled within the last 30 days?: No - Travel/Exposure Within Last Year Have you traveled outside the [place] in the last year?: No - Additonal Travel Details Have you been exposed to anyone with a communicable illness?: No - Travel Symptoms Symptom Screening: None Review of Systems Constitutional: Denies: Chills, Fever Eyes: Denies: Eye discharge ENT: Denies: Congestion Respiratory: Denies: Cough, Dyspnea Past Medical History - SOCIAL HISTORY Smoking Status: Current every day smoker Alcohol Use: Occasional Drug Use: None - RESPIRATORY Hx Respiratory Disorders: Yes Comment:: environmental allergies - CARDIOVASCULAR Hx Cardio Disorders: Yes Hx Hypertension: Yes - NEURO Hx Neuro Disorders: No - GI Hx GI Disorders: Yes Comment:: colitis/duodinitis - Hx Genitourinary Disorders: No - ENDOCRINE Hx Endocrine Disorders: No - MUSCULOSKELETAL Hx Musculoskeletal Disorders: Yes - PSYCH Hx Psych Problems: Yes Comment:: PTSD - HEMATOLOGY/ONCOLOGY Hx Hematology/Oncology Disorders: No Family Medical History Any Significant Family History?: Yes Hx Heart Disease: Father *Heart Comment: [place] x2 Hx HTN: Father Physical Exam - General General Appearance: Alert, Oriented x3, Cooperative, No acute distress - Head Head exam: Atraumatic, Normocephalic - Eye Eye exam: Normal appearance - Neck Neck exam: Normal inspection, Full ROM. negative: Tenderness - Respiratory Respiratory exam: Normal lung sounds bilaterally. negative: Respiratory distress - Cardiovascular Cardiovascular Exam: Regular rate, Normal rhythm, Normal heart sounds - GI/Abdominal GI/Abdominal exam: Soft, Other (The umbilicus has a 1x1 cm area of erythema over the L side. There appears to be a scab deep in the umbilicus but there is no active bleeding. There is trace erythema over the L side of the umbilicus but no obvious abscess. ). negative: Guarding, Pulsatile mass, Rebound, Rigid, Tenderness (There is very mild tenderness in the lower abdomen but the abdomen is very soft.) - Extremities Extremities exam: Normal inspection, Full ROM, Normal capillary refill. negative: Tenderness Course Vital Signs 04/26/19 15:52 Temperature 98.6 F Pulse Rate 77 Respiratory 16 Rate Blood Pressure 125/93 Pulse Ox 99 - Reevaluation(s) Reevaluation #1: The patient is doing very well at this time. She denies any pain or nausea and her abdomen is very soft and nontender. I did discuss the normal lab tests and the need to take her home Entocort as she is told to do by her GI doctor. We will place the patient on Abx ointment and pills for the belly button superficial infection. She is to see her PCP later this week for recheck. 04/26/19 16:59 Medical Decision Making - Data Complexity MDM Data: Labs Ordered and/or Reviewed - Lab Data Result diagrams: 04/26/19 16:20 04/26/19 16:20 Disposition Disposition: Discharge Clinical Impression: Skin infection Disposition: Home, Self-Care Condition: (2) Stable Instructions: Abscess Incision and Drainage (ED) Additional Instructions: Please keep the belly button area cleaned daily with half strength peroxide and water and dress daily with Bactroban. Take the Keflex as directed and see your family doctor later this week for recheck. Return to the ER for any worsening issues, pain, fever or redness. Prescriptions: Mupirocin [Bactroban] 22 gm TOP DAILY #1 tube Cephalexin [Keflex] 500 mg PO QID #28 cap Forms: Patient Portal Access Time of Disposition: 16:58 Quality - Quality Measures Quality Measures: N/A - Blood Pressure Screening View Details: Yes Does Patient Have Any of the Following: Active Dx of HTN Blood Pressure Classification: Hypertensive Reading Systolic Measurement: 125 Diastolic Measurement: 93 Screening for High Blood Pressure: Patient Exclusion, Hx of HTN [G9744]
[2019-04-26 16:36] LABS: BASO % 0.5 % (0-6); GRAN % 57.9 % (47-80); HEMATOCRIT 44.5 % (35.0-47.0); HEMOGLOBIN 15.2 gm/dl (11.6-16.0); LYMPH % 31.1 % (16-45); MEAN CELL VOLUME 91.8 fl (81-97); MEAN CORPUSCULAR HEMOGLOBIN 31.3 pg (27-33); MEAN CORPUSCULAR HGB CONC 34.2 g/dl (32-36); MEAN PLATELET VOLUME 9.2 fl (7.4-10.4); MONO % 7.5 % (0-9); PLATELET COUNT 301 K/uL (130-400); RED BLOOD COUNT 4.85 M/uL (3.80-5.40); RED CELL DISTRIBUTION WIDTH 12.5 % (11.5-14.5); WHITE BLOOD COUNT W/O DIFF 9.5 K/uL (4.2-12.2)
[2019-04-26 16:43] LABS: BLOOD UREA NITROGEN 8 mg/dL (6-20); CREATININE 0.7 mg/dL (0.5-0.9); EST GLOMERULAR FILTRATION RATE > 60 mL/min
[2019-04-26 16:44] LABS: LIPASE 28 U/L (13-60); TOTAL PROTEIN 7.1 g/dL (6.6-8.7)
[2019-04-26 16:46] LABS: GLUCOSE,RANDOM 91 mg/dL (74-109)
[2019-04-26 16:48] LABS: ALBUMIN 4.7 g/dL (4.0-5.0); ALKALINE PHOSPHATASE 72 U/L (35-104); ALT/SGPT 11 U/L (<33); AST/SGOT 14 U/L (10.0-35.0)
[2019-04-26 16:49] LABS: BILIRUBIN,DIRECT < 0.2 mg/dL (0-0.3)
== END 2019-04-26 17:06 | disposition home or self-care (01) ==
LOC: ER 15:47
DX: L08.89 Other specified local infections of the skin and subcutaneous tissue (principal); R10.33 Periumbilical pain; I10 Essential (primary) hypertension; F17.210 Nicotine dependence, cigarettes, uncomplicated
CPT/HCPCS: 80048; 80076; 83690; 84703; 85025; 86140; 96365; 99284; J7030